=== PATIENT | male | born 1975 | race Caucasian/White ===

== ENCOUNTER 2019-10-13 13:41 | Emergency (ER) | payer MEDICARE ==
[~2019-10-13] VITALS: Ht 175.3 cm; Wt 122.5 kg
[2019-10-13] MEDS ORDERED: RISPERDAL0.5 MG PO (13:51)
[2019-10-13] MEDS ORDERED: SEROQUEL200 MG PO (13:51)
[2019-10-13 14:44] LABS: ABSOLUTE BASOPHILS 0.1 thou/uL (0.0-0.2); ABSOLUTE EOSINOPHILS 0.2 thou/uL (0.0-0.7); ABSOLUTE LYMPHOCYTES 2.3 thou/uL (0.8-5.3); ABSOLUTE MONOCYTES 0.6 thou/uL (0.0-1.2); ABSOLUTE NEUTROPHILS 4.8 thou/uL (1.6-8.1); BASOPHILS 1.5 %; EOSINOPHILS 2.3 %; HEMATOCRIT 42.3 % (42.0-52.0); HEMOGLOBIN 15.6 gm/dL (14.0-18.0); LYMPHOCYTES 28.7 %; MCH 32.6 pg (26.0-34.0); MCV 88.2 fL (80.0-100.0); MONOCYTES 7.5 %; MPV 8.4 fl. (7.2-11.1); NUCLEATED RBCS 0 /100WBC; PLATELET COUNT* 206 thou/uL (150-400); RDW-CV 12.9 % (10.5-14.5); WBC 8.1 thou/uL (4.0-11.0)
[2019-10-13 14:53] LABS: CALCIUM 8.7 mg/dL (8.5-10.1); CREATININE 1.2 mg/dL (0.6-1.3); POTASSIUM 3.9 mmol/L (3.5-5.1)
[2019-10-13 14:56] LABS: APTT 25.3 Seconds (25.0-31.3); INR 1.1
[2019-10-13 15:04] LABS: ALBUMIN 4.2 g/dL (3.4-5.0); TOTAL BILIRUBIN 0.6 mg/dL (<0.1-1.0); TOTAL PROTEIN 7.5 g/dL (6.4-8.2)
[2019-10-13 16:07] VITALS: BP 138/91
--- NOTE | 2019-10-14 10:43 | EKG ---
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
== END 2019-10-13 16:10 | disposition home or self-care (01) ==
LOC: M.ERS 13:41
PROVIDERS: Nurse Practitioner Family
DX: R60.0 Localized edema (principal); R06.00 Dyspnea, unspecified